=== PATIENT | female | born 1995 | race Caucasian/White ===

== ENCOUNTER 2024-09-28 05:06 | Emergency (ER) | payer BC, SELFPAY ==
[2024-09-28 05:09] VITALS: BP 131/91
--- NOTE | 2024-09-28 06:22 | ED.GENMED ---
History of Present Illness
General
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
Source: patient
Exam Limitations: none
Time Seen by Provider: 09/28/24 05:20
Nursing documentation reviewed up to this point in time: agreed with
History of Present Illness
History of Present Illness:
29-year-old female with history as noted presents to the ER for evaluation of pelvic pain and vaginal bleeding. Patient delivered full-term via normal spontaneous vaginal delivery on 09/22/2024; she says she passed the placenta and was told that she
had a small tear during delivery but not large enough to require sutures. Her SPECIAL EFFECTS PERSON is through [facility] (Dr. Quintero; [facility]). She says that since delivery she has not had pelvic pain which she describes as an intense pressure that
radiates across the lower abdomen and back. She says that this has been waxing and waning. She has had bleeding/spotting since. 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
she passed a large clot that she says was the size of apple. She went to the emergency room at [facility] at that time and was given tranexamic acid to help with her bleeding. She says that since then she has had continued pelvic
pressure. She says that last night she had chills. She has been feeling very weak. She says that today she is passing small clots again and bleeding has increased which prompted her to come to the emergency room for second time since delivery.
She does note that she has an appoint with her SPECIAL EFFECTS PERSON this upcoming Friday.
Review of Systems
Review of Systems
All Other Systems: ROS reviewed and negative except as documented in HPI and ROS
Constitutional: Reports fatigue and chills; Denies fever
Respiratory: Denies trouble breathing
Cardiac: Denies chest pain
ABD/GI: Reports abdominal pain; Denies nausea or vomiting
: Reports bleeding; Denies flank pain
Musculoskeletal: Reports back pain; Denies neck pain
Neurological: Reports dizzy; Denies headache
Phy Exam
Physical Exam
Physical Exam:
General: Awake, alert, oriented x3; no acute distress
Head: Normocephalic, atraumatic
Eyes: Conjunctiva normal, sclera anicteric
Throat: Airway intact, handling secretions
Neck: Trachea midline
Lungs: Clear to auscultation bilaterally, no wheezing, rales, rhonchi
Heart: Regular rate and rhythm, no murmurs, gallops, or rubs
Abd: Soft, non distended, mildly tender in the lower abdomen
Neuro: No gross deficits
Skin: Warm and dry
Extremities: No edema in extremities, equal pulses in all extremities
Scores
Heart Failure Risk
Heart Failure Risk Score: Not Applicable
Heart Score for Chest Pain Patients
STEMI patient?: Not applicable
Withdrawal Assessment of Alcohol
Withdrawal Assessment Completed?: Not applicable
Course
Orders/Labs/Results
Orders:
Orders
09/28/24 06:21
US Pelvis Only (non-obstetric) Urgent
Comment:
Reason For Exam: abd pain and vaginal bleeding
09/28/24 06:45
Bladder Scan- Treatment ONCE
09/28/24 07:45
Type+Screen Urgent
Complete Blood Count/With Diff Urgent
Urinalysis Reflex To Culture Urgent
Date Specimen was Collected: 09/28/24
Time Specimen was Collected: 07:35
Urine Microscopic Reflex Cult Urgent
Urine Culture Urgent
ANDREW Source: U
Specimen Description:
Date Specimen was Collected: 09/28/24
Time Specimen was Collected: 07:35
09/28/24 08:29
ABO2 Urgent
BBK Wristband Number:
Associate notified that ABO2 has been ordered: [id number]
Date: 09/28/24
Time: 07:57
Counsel ID: [id number]
Comprehensive Metabolic Panel Urgent
Abnormal Lab Results
09/28/24 09/28/24
07:45 08:29
MCHC 32.6 L g/dL
(33.0-37.0)
RDW 14.7 H %
(11.5-14.5)
Plt Count 418 H 10^3/uL
(130-400)
Chloride 109 H mmol/L
(98-107)
Creatinine 0.5 L mg/dL
(0.6-1.0)
Glucose 109 H mg/dl
(70-99)
ALT 50 H U/L
(0-35)
Alkaline Phosphatase 160 H U/L
(38-126)
Total Protein 5.9 L g/dl
(6.3-8.2)
Ur Occult Blood Reflex 4+ A
(Negative)
Leukocyte Esterase Rfl 3+ A
(Negative)
Urine RBC 16-20 A /HPF
(0-2)
Urine WBC (Reflex) >100 A /HPF
(0-5)
Urine Bacteria (Reflex) Few A
(Negative)
Urine Albumin (Reflex) 2+ A
(Neg - Trace)
Antibody Screen Positive A
(Negative)
09/28/24 07:45
09/28/24 08:29
Vital Signs
Initial and Last Documented VS:
Initial Vital Signs
Temp Pulse Resp BP Pulse Ox
37.0 C 92 18 131/91 98
09/28/24 05:09 09/28/24 05:09 09/28/24 05:09 09/28/24 05:09 09/28/24 05:09
Last Documented Vital Signs
Temp Pulse Resp BP Pulse Ox
37.0 C 92 18 131/91 98
09/28/24 05:09 09/28/24 05:09 09/28/24 05:09 09/28/24 05:09 09/28/24 06:25
MDM/Problems Addressed
Differential Diagnosis Includes:
pain/bleeding, retained products/placenta, endometritis, vaginal tear; could have some normal bleeding with UTI or urinary retention as well
MDM/Problems Addressed:
29-year-old female who is 6 days status post normal spontaneous vaginal delivery at [facility] presents to the ER with continued vaginal bleeding, passage of clots, pelvic pain/pressure. Vitals and exam as above. Plan to check labs including a CBC
and a CMP, type and screen. Will check pelvic ultrasound. Check bladder scan and urinalysis. Will reassess after the above. Of note, patient declined pelvic examination here. Explained to her that pelvic examination is indicated for chief
complaint of abdominal pain with vaginal bleeding after to look for tears and to assess the degree of hemorrhage. She says that she is only having some spotting with small clots. She says that she does not wish for me to do a pelvic
examination today; she says that she prefers to wait and discussed with her QUILL CLEANING MACHINE OPERATOR on Friday.
Ultrasound reviewed and shows no clear retained products or other acute abnormalities. CBC shows normal hemoglobin 12.3, acceptable platelet count. Chemistry is pending. Urinalysis contaminated But no urinary symptoms to suggest UTI. Chemistry
no clinically significant abnormalities. Stable for discharge patient will follow-up with her QUILL CLEANING MACHINE OPERATOR on Friday. Spoke about return precautions all questions answered.
*Radiology
Radiology exam reviewed: radiology read reviewed
*Pulse Oximetry
SaO2: 98
Oxygen Mode of Delivery: Room air
Patient hypoxic: no (98%)
*Critical Care Note
Total Time (30-74mins, 75-104mins- exclusive of procedures): Not Applicable
Data Reviewed
Source: patient
ED Attending Note
-
Portions of this chart may have been created with voice recognition software.� Occasional wrong word or��sound alike� substitutions may have occurred due to the inherent limitations of voice recognition software.
Discharge Plan
Departure
Patient Disposition: Home (Routine Discharge)
Date of Disposition: 09/28/24
Time of Disposition: 09:37
Patient with high blood pressure during this ER visit?: No
Discharge Problem:
bleeding
Instructions: Vaginal - Discharge instructions
Referrals:
PRIVATE,PHYSICIAN [Family Provider, Internal Medicine]
Activity Restrictions/Additional Instructions:
You should follow-up with your SPECIAL EFFECTS PERSON in the office as scheduled this Friday. If your bleeding or pain are increasing or if you have any other symptoms that are concerning you should return to the emergency room for reassessment.
Thank you for visiting the Emergency Department at [facility].
1. Please schedule a follow up appointment as directed. Call first thing tomorrow morning to make an appointment.
2. If indicated, please take your medications as instructed and indicated on discharge paperwork.
3. If any of your symptoms do not improve, or persist, or become more severe within 6-12 hours, please return to the emergency department for further care.
4. Please return to the emergency department if you develop a headache, neck pain/stiffness, fever greater than 100.4F, chest pain, shortness of breath, persistent nausea, vomiting, slurred speech, difficulty walking, numbness/tingling, weakness,
signs of infection or any other symptoms that are worrisome to you.
Please call [phone] if you have any questions.
Interventions
Interventions:
*Risk Screen - Suicide Last Done: 09/28/24 05:09
Discharge Date and Time
Print Language: SLOVAK
[2024-09-28 07:58] LABS: Hematocrit 37.7 % (37.0-47.0); Hemoglobin 12.3 g/dL (12.0-16.0); Mean Corp Hgb Conc. 32.6 g/dL (33.0-37.0); Mean Corpuscular Volume 84.9 fL (81.0-99.0); Nucleated Red Blood Cells % 0 %; Platelet Count 418 10^3/uL (130-400); Red Cell Dist. Width 14.7 % (11.5-14.5)
[2024-09-28 08:16] LABS: Urine Character Slightly Cloudy (Clear)
[2024-09-28 08:26] LABS: Urine Squamous Cell >30 /LPF (Few)
[2024-09-28 08:31] LABS: Urine Red Blood Cell 16-20 /HPF (0-2); Urine White Cell >100 /HPF (0-5)
[2024-09-28 09:15] LABS: ALT (SGPT) 50 U/L (0-35); AST (SGOT) 25 U/L (14-36); Albumin 3.5 g/dl (3.5-5.0); Alkaline Phosphatase 160 U/L (38-126); Blood Urea Nitrogen 9 mg/dl (7-17); Calcium 8.9 mg/dl (8.4-10.2); Carbon Dioxide 22 mmol/L (22-30); Chloride 109 mmol/L (98-107); Glucose 109 mg/dl (70-99); Potassium 4.3 mmol/L (3.5-5.1); Sodium 136 mmol/L (135-145); Total Protein 5.9 g/dl (6.3-8.2); eGFR > 60.00
[2024-09-28 10:00] VITALS: BP 132/76
== END 2024-09-28 16:03 | disposition home or self-care (01) ==
LOC: EMR 05:06
PROVIDERS: EMERGENCY PHYSICIAN Emergency Medicine
DX: O72.2 Delayed and secondary postpartum hemorrhage (principal); O90.89 Other complications of the puerperium, not elsewhere classified; R10.2 Pelvic and perineal pain
CPT/HCPCS: 99284; 76856; 80053; 81003; 81015; 85025; 86850; 86870; 86900; 86901; 87086; 87147; 87186